=== PATIENT | female | born 1960 | race Caucasian/White ===

== ENCOUNTER 2019-04-12 11:12 | Emergency (ER) | payer BC ==
[2019-04-12 11:37] VITALS: BP 165/98; TEMP 98.5; BMI 30.2
--- NOTE | 2019-04-12 11:55 | PDOC ---
History of Present Illness - General Chief Complaint: Pain Stated Complaint: PELVIC, BACK PAIN Time Seen by Provider: 04/12/19 11:14 History Source: Patient Exam Limitations: No Limitations - History of Present Illness Travel History: No Initial Comments: 04/12/19 12:08 58y F hx of htn, dm, kidney stones, presenst with approx 2 weeks of intermittent , but gradually worsening pelvic pain. Pt notse that the pain is a pressure/ cramping like sensation that is worse when she is trying to urinate, as well as when she is sitting up. pt endorses some nausea. Pt also endorses some b/l lumbar back pain when she is sitting for long periods of time but does not seem to be related to this pelvic pain. The pain Feels better when she is standing or laying straight. There is no associated skin of the discomfort and pain with food intake. Patient denies any other symptoms including chest pain, shortness of breath, vomiting, fever, chills, numbness, tingling, weakness, Patient notes that this pain is different from her kidney stone pain in the past. Past History - Past Medical History Allergies/Adverse Reactions: Allergies Allergy/AdvReac Type Severity Reaction Status Date / Time No Known Allergies Allergy Verified 04/12/19 11:14 Home Medications: Ambulatory Orders Amlodipine Besylate 5 mg PO DAILY 04/12/19 Hydrochlorothiazide [Hctz -] 12.5 mg PO DAILY 04/12/19 Metformin HCl [Glucophage] 1,000 mg PO HS 04/12/19 COPD: No Diabetes: Yes HTN: Yes Kidney Stones: Yes (LITHOTRIPSY) Other medical history: PSORIASIS, MIGRAINE AVILA - Surgical History Abdominal Surgery: Yes (TUMMY TUCK) - Psycho Social/Smoking Cessation Hx Smoking History: Former smoker Have you smoked in the past 12 months: No Information on smoking cessation initiated: No Hx Alcohol Use: No Review of Systems - Review of Systems Able to Perform ROS?: Yes Comments:: 04/12/19 12:13 Constitutional - no reported Fever, Chills, HEENT: no reported vision changes, sore throat Respiratory: no reported cough, sob, hemoptysis Cardiac: no reported chest pain, palpitations, light headedness, leg swelling Abd/GI: +abd pain, nausea, no reported vomiting, blood per rectum, melena, diarrhea : no reported dysuria, frequency, discharge Musculskelatal - +back pain, no reported joint swelling skin - no reported bruising, erythema, rash neurological: no reported headache, numbness, focal weakness, tingling, ataxia, hematologic: no reported easy bruising, easy bleeding *Physical Exam - Vital Signs Last Vital Signs Temp Pulse Resp BP Pulse Ox 98.5 F 101 H 20 165/98 98 04/12/19 11:12 04/12/19 11:12 04/12/19 11:12 04/12/19 11:12 04/12/19 11:12 - Physical Exam 04/12/19 12:14 GENERAL: The patient is awake, alert, and fully oriented, Nontoxic - in no acute distress. HEAD: Normocephalic, atraumatic. EYES: extraocular movements intact, sclera anicteric, conjunctiva clear. ENT: Normal voice, Moist mucous membranes. NECK: Normal range of motion, supple LUNGS: Breath sounds equal, clear to auscultation bilaterally. No wheezes, no rhonchi, no rales. HEART: Regular rate and rhythm, normal S1 and S2 without murmur, rub or gallop. ABDOMEN: Mild suprapubic tenderness,Soft, No guarding, no rebound. No CVA tenderness BACK: No midline or paraspinal tenderness in the cervical thoracic or lumbar spine EXTREMITIES: Normal range of motion, no edema. NEUROLOGICAL: No facial assymetry, Normal speech, Moving all 4 extremities spontaneously and symmetrically PSYCH: Normal mood, normal affect. SKIN: Warm, Dry, normal turgor, ED Treatment Course - LABORATORY CBC & Chemistry Diagram: 04/12/19 12:17 04/12/19 12:17 - ADDITIONAL ORDERS Additional order review: Laboratory Results 04/12/19 11:27 Urine Color Yellow Urine Appearance Clear Urine pH 6.0 Urine Protein Negative Urine Glucose (UA) Negative Urine Ketones Negative Urine Blood Negative Urine Nitrite Negative Urine Bilirubin Negative Urine Urobilinogen 0.2 Ur Leukocyte Esterase Negative Medical Decision Making - Medical Decision Making 04/12/19 12:14 Differential for the patient's pain includes a UTI, Gastritis, muscular pain Will check UA, basic lab work We will give the patient Pepcid, Motrin, Maalox will reassess 04/12/19 13:09 ? bladder spasm no urine output from straight cath will obtain abd US 04/12/19 14:55 pts labs reviewed unremarakble US noted for fibroids. discussed possibility of CT and recommended to eval for other atypical causes of her pain including appendicitis, diverticuiltis/colitis as pt still has some discomfort. Currently our CT is down and we discussed we would transfer the pt to [facility], however pt decliens it at this time. states she will return if it gets worse, but will see her doctor tomorrow as an outpatient. I discussed the physical exam findings, ancillary test results and final diagnoses with the patient. I answered all of the patient's questions. The patient was satisfied with the care received and felt comfortable with the discharge plan and treatment plan. The patient will call their primary care physician within 24 hours to arrange follow-up and will return to the Emergency Department with any new, persistent or worsening symptoms. Discharge - Discharge Information Problems reviewed: Yes Clinical Impression/Diagnosis: Abdominal pain Qualifiers: Abdominal location: lower abdomen, unspecified Qualified Code(s): R10.30 - Lower abdominal pain, unspecified Condition: Improved Disposition: HOME - Admission No - Follow up/Referral - Patient Discharge Instructions Patient Printed Discharge Instructions: DI for Abdominal Pain-Adult Additional Instructions: Return to the emergency department immediately with ANY new, persistent or worsening symptoms including worsening abdominal pain, fevers, inability to tolerate oral intake, chest pain, shortness of breath or any other concerns. We discussed obtaining a CAT scan however, The patient declines at this time I would recommend if the patient's pain is persistent or worsening a CAT scan may help rule out other diagnoses such as atypical appendicitis, diverticulitis, colitis. Stay well hydrated. youir ultrasoud revealed fibroids. That may be the cause of your abdomen. You MUST call and follow up with your doctor and a accounting clerks supervisor tomorrow. Your emergency department visit is not complete without a followup with your doctor for reevaluation. Please make sure your doctor reviews the results of your emergency evaluation. Print Language: SERBIAN - Post Discharge Activity
[2019-04-12] MEDS ORDERED: METOCLOPRAMIDE HCL INJECTION 10 MG/2 ML VIAL IVPUSH ONE (12:06)
[2019-04-12] MEDS ORDERED: FAMOTIDINE 20 MG/50 ML IVPB 20 MG/50 ML MG IVPB ONE (12:06)
[2019-04-12] MEDS ORDERED: MAG HYDROX/AL HYDROX/SIMETH -MYLANTA- ORAL SUSPENSION PO ONE (12:06)
[2019-04-12] MEDS ORDERED: IBUPROFEN 400 MG TABLET (FP) PO ONE ×2 (12:11→12:14)
[2019-04-12] MEDS ORDERED: FAMOTIDINE 20 MG TABLET PO ONE (12:12)
[2019-04-12] MEDS ORDERED: MAG HYDROX/AL HYDROX/SIMETH 30 ML UNIT-DOSE CUP ONE (12:14)
[2019-04-12] MEDS ORDERED: FAMOTIDINE 20 MG TABLET ONE (12:15)
[2019-04-12 12:35] LABS: BASO % 0.6 % (0-2.0); EOS % 1.7 % (0-4.5); HEMATOCRIT 39.5 % (32.4-45.2); HEMOGLOBIN 13.3 GM/dl (10.7-15.3); LYMPH % 17.3 % (8-40); MCH 29.8 pg (25.7-33.7); MCHC 33.5 g/dl (32.0-36.0); MEAN CELL VOLUME 88.7 fl (80-96); MEAN PLT VOLUME 8.6 fl (7.5-11.1); NEUT % 71.4 % (42.8-82.8); PLATELET COUNT 400 K/MM3 (134-434); RBC 4.45 M/mm3 (3.60-5.2); RDW 12.1 % (11.6-15.6); WHITE BLOOD COUNT 9.6 K/mm3 (4.0-10.8)
[2019-04-12 12:42] LABS: ALBUMIN 4.2 g/dl (3.4-5.0); BILIRUBIN,TOTAL 0.4 mg/dl (0.2-1); CALCIUM 9.5 mg/dl (8.5-10); CREATININE 0.6 mg/dl (0.55-1.3); POTASSIUM 3.8 mmol/L (3.5-5.1); TOT PROT 7.8 g/dl (6.4-8.2)
[2019-04-12] MEDS ORDERED: SODIUM CHLORIDE 1,000 ML IV ONE (13:09)
[2019-04-12 15:08] VITALS: PULSE 92
== END 2019-04-12 15:10 | disposition home or self-care (01) ==
LOC: SUPCPDRO 11:12 → FER 11:12
DX: R10.30 Lower abdominal pain, unspecified (principal); I10 Essential (primary) hypertension; E11.9 Type 2 diabetes mellitus without complications; N20.0 Calculus of kidney; Z87.891 Personal history of nicotine dependence
CPT/HCPCS: 36415; 76830-TC; 76856-TC; 80053; 81003; 83690; 85025; 87086; 99284-25